=== PATIENT | male | born 1955 | race American Indian/Alaskan Native ===

== ENCOUNTER 2018-07-05 07:36 | Emergency (ER) | payer OTHER ==
[2018-07-05 09:12] LABS: Basophils % (Auto) 0.3 % (0.0-1.8); Eosinophils % (Auto) 0.1 % (0.0-4.3); Hemoglobin 14.8 gm/dl (11.8-15.2); Lymphocytes # (Auto) 1.6 K/mm3 (1.2-5.4); Lymphocytes % (Auto) 13.9 % (13.4-35.0); Mean Corpuscular HGB Conc 34 % (32-34); Mean Corpuscular Hemoglobin 31 pg (28-32); Mean Corpuscular Volume 91 fl (84-94); Monocytes # (Auto) 0.9 K/mm3 (0.0-0.8); Monocytes % (Auto) 7.3 % (0.0-7.3); Platelet Count 256 K/mm3 (140-440); Red Blood Count 4.82 M/mm3 (3.65-5.03); Red Cell Distribution Width 14.2 % (13.2-15.2)
[2018-07-05] MEDS ORDERED: TORADOL IV ONE (09:26)
[2018-07-05] MEDS ORDERED: BRETHINE SUB-Q ONE (09:26)
[2018-07-05] MEDS ORDERED: DILAUDID IV ONE (09:26)
[2018-07-05 09:28] LABS: Alanine Aminotransferase 19 units/L (7-56); Albumin 4.3 g/dL (3.9-5); BUN/Creatinine Ratio 20; Blood Urea Nitrogen 16 mg/dL (9-20); Calcium 9.3 mg/dL (8.4-10.2); Hemolysis Index 20; Lipase 46 units/L (13-60)
--- NOTE | 2018-07-05 09:28 | Emergency Department Report ---
Blank Doc - Documentation Documentation: Patient is a 62-year-old -Indian male who signed him because of dysuria and suprapubic pain however the patient actually states that he believes he may have overdosed on erectile dysfunction medications has been corrected for the past 9 hours. Patient states the pain is 8 out of 10 in severity. On brief physical exam patient is suprapubic discomfort but is fully erect. Patient will be moved to the main ED for continued management. Patient was given 1 mg of Dilaudid as well as terbutaline as Sudafed to try to relieve the patient's symptoms.
[2018-07-05] MEDS ORDERED: DILAUDID ONE (09:30)
[2018-07-05] MEDS ORDERED: TORADOL ONE (09:31)
[2018-07-05] MEDS ORDERED: SUDAFED PO ONE (10:00)
[2018-07-05] MEDS ORDERED: NEO-SYNEPHRINE 1 MG, NACL P/F VIAL (10 ML) 9.9 ML IJ**NOT IV ONE (10:25)
[2018-07-05] MEDS ORDERED: MARCAINE 0.25% INFILTRATI ONE (10:27)
[2018-07-05] MEDS ORDERED: BETADINE TP ONE (10:48)
--- NOTE | 2018-07-05 10:54 | Emergency Department Report ---
ED Male HPI - General Chief complaint: Abdominal Pain Stated complaint: STOMACH PAIN Time Seen by Provider: 07/05/18 09:19 Source: patient Mode of arrival: Ambulatory Limitations: No Limitations - History of Present Illness Initial comments: 62-year-old male with a past medical history of hypertension and erectile dysfunction presents to the hospital complaining of abdominal pain and priapism. Patient injected his penis with erectile dysfunction medication. Patient thinks he might have accidentally use more medication recommended. He has been erect since midnight and presented to the ER at 7:30 AM with complaint of lower abdominal pain and nausea for a couple of days and painful urination. After ED physician screening at 9:19am it was noted that patient had priapism. Patient states he did urinate at 5 AM. Pain related to priapism. States that he his having 10/10 penile pain and suprapubic abdominal pain started after priapism. Patient denies previous history of priapism. Patient states he does have a urologist who is [facility] - Related Data Home Medications Medication Instructions Recorded Confirmed Last Taken Lisinopril/Hydrochlorothiazide 1 tab PO QDAY 07/05/18 07/05/18 Unknown [Zestoretic 20-12.5 mg] Allergies Allergy/AdvReac Type Severity Reaction Status Date / Time No Known Allergies Allergy Unverified 07/05/18 08:24 ED Review of Systems ROS: Stated complaint: STOMACH PAIN Other details as noted in HPI Comment: All other systems reviewed and negative ED Past Medical Hx - Past Medical History Previous Medical History?: Yes Hx Hypertension: Yes Additional medical history: 3 spots on lung - Surgical History Past Surgical History?: No - Social History Smoking Status: Never Smoker Substance Use Type: None - Medications Home Medications: Home Medications Medication Instructions Recorded Confirmed Last Taken Type Lisinopril/Hydrochlorothiazide 1 tab PO QDAY 07/05/18 07/05/18 Unknown History [Zestoretic 20-12.5 mg] ED Physical Exam - General Limitations: No Limitations - Other Other exam information: General: No limitations, patient is alert in no acute distress Head exam: Atraumatic, normocephalic Eyes exam: Normal appearance ENT: Moist mucous membrane, normal oropharynx Neck exam: Normal inspection, full range of motion, no meningismus nontender Respiratory exam: Clear to auscultation bilateral, no wheezes, rales, crackles Cardiovascular: Normal rate and rhythm, normal heart sounds Abdomen: Soft, nondistended, suprapubic tenderness, with normal bowel sounds, no rebound, or guarding : Circumcised, priapism, no penile discharge, lesions, no testicular pain or scrotal swelling Extremity: Full range of motion normal inspection no deformity Back: Normal Inspection, full range of motion, no tenderness Neurologic: Alert, oriented x3, cranial nerves intact, no motor or sensory deficit Psychiatric: normal affect, normal mood Skin: Warm, dry, intact ED Course Vital Signs 07/05/18 07/05/18 07/05/18 08:24 11:13 11:16 Temperature 98.1 F Pulse Rate 86 103 H Respiratory 18 27 H Rate Blood Pressure 171/95 165/98 O2 Sat by Pulse 98 97 96 Oximetry 07/05/18 07/05/18 07/05/18 11:30 11:46 12:00 Temperature Pulse Rate 112 H 120 H 120 H Respiratory 17 17 15 Rate Blood Pressure 167/107 167/107 154/97 O2 Sat by Pulse 95 96 96 Oximetry 07/05/18 07/05/18 07/05/18 12:16 12:30 12:46 Temperature Pulse Rate 120 H 114 H 112 H Respiratory 17 21 20 Rate Blood Pressure 154/97 149/102 149/102 O2 Sat by Pulse 97 98 96 Oximetry 07/05/18 07/05/18 07/05/18 13:00 13:16 13:30 Temperature Pulse Rate 110 H 107 H 110 H Respiratory 19 13 14 Rate Blood Pressure 146/98 146/98 146/98 O2 Sat by Pulse 95 94 94 Oximetry 07/05/18 07/05/18 07/05/18 13:45 14:00 14:15 Temperature Pulse Rate 107 H 105 H 98 H Respiratory 13 16 18 Rate Blood Pressure 135/93 156/90 156/90 O2 Sat by Pulse 94 96 98 Oximetry 07/05/18 07/05/18 14:30 14:41 Temperature 97.9 F Pulse Rate 98 H Respiratory 16 Rate Blood Pressure 135/89 O2 Sat by Pulse 97 Oximetry - Penile Procedure Consent Obtained: verbal consent Time Out Performed: Yes Indication: priapism management Local Anesthesia Used: Penile Nerve Block Amount of Anesthesia Used (mls): 5 (pen VK) Priapism Management: aspiration, phenylephrine injection Complications: none Patient Tolerated Procedure: well Additional Comments: Nitin bandage wrap placed after initial aspiration. Patient observed for 1-2 hours after aspiration and has complete resolution of priapism without hematoma formation after Nitin wrap removal. ED Medical Decision Making - Lab Data Result diagrams: 07/05/18 08:37 07/05/18 08:37 Lab Results 07/05/18 07/05/18 Range/Units 08:37 08:37 WBC 11.8 H (4.5-11.0) K/mm3 RBC 4.82 (3.65-5.03) M/mm3 Hgb 14.8 (11.8-15.2) gm/dl Hct 44.0 (35.5-45.6) % MCV 91 (84-94) fl MCH 31 (28-32) pg MCHC 34 (32-34) % RDW 14.2 (13.2-15.2) % Plt Count 256 (140-440) K/mm3 Lymph % (Auto) 13.9 (13.4-35.0) % [place] % (Auto) 7.3 (0.0-7.3) % Eos % (Auto) 0.1 (0.0-4.3) % Baso % (Auto) 0.3 (0.0-1.8) % Lymph # 1.6 (1.2-5.4) K/mm3 [place] # 0.9 H (0.0-0.8) K/mm3 Eos # 0.0 (0.0-0.4) K/mm3 Baso # 0.0 (0.0-0.1) K/mm3 Seg Neutrophils % 78.4 H (40.0-70.0) % Seg Neutrophils # 9.3 H (1.8-7.7) K/mm3 Sodium 142 (137-145) mmol/L Potassium 4.0 (3.6-5.0) mmol/L Chloride 105.6 (98-107) mmol/L Carbon Dioxide 26 (22-30) mmol/L Anion Gap 14 mmol/L BUN 16 (9-20) mg/dL Creatinine 0.8 (0.8-1.5) mg/dL Estimated GFR > 60 ml/min BUN/Creatinine Ratio 20 % Glucose 108 H (75-100) mg/dL Calcium 9.3 (8.4-10.2) mg/dL Total Bilirubin 0.40 (0.1-1.2) mg/dL AST 19 (5-40) units/L ALT 19 (7-56) units/L Alkaline Phosphatase 70 (35-129) units/L Total Protein 7.5 (6.3-8.2) g/dL Albumin 4.3 (3.9-5) g/dL Albumin/Globulin Ratio 1.3 % Lipase 46 (13-60) units/L - Medical Decision Making Patient received Sudafed and 3 separate IM injection of terbutaline without improvement and priapism. Patient then had peanut aspiration performed after penile block followed by phenylephrine infusion. Complete resolution of priapism an erection prior to discharge. Patient has a persistent tachycardia likely secondary to the above-mentioned meds. He is asymptomatic and feels better. - Differential Diagnosis priapism, infection Critical Care Time: No Critical care attestation.: If time is entered above; I have spent that time in minutes in the direct care of this critically ill patient, excluding procedure time. ED Disposition Clinical Impression: Priapism, Drug-induced priapism Disposition: DC-01 TO HOME OR SELFCARE Is pt being admited?: No Does the pt Need Aspirin: No Instructions: Priapism (ED) Additional Instructions: Follow-up with your urologist or the urologist provided prior to reinitiating erectile dysfunction medication. Return if symptoms worsen as indicated by the discharge instructions. Referrals: your, urologist [Other] - 3-5 Days DASIA BERRIOS MD [Staff Physician] - 3-5 Days Time of Disposition: 14:47
[2018-07-05] MEDS: BRETHINE SUB-Q SCH ×2 (11:18→11:40)
[2018-07-05 14:41] VITALS: BP 135/89
== END 2018-07-05 15:35 | disposition home or self-care (01) ==
LOC: EDSEX → ED 07:36
DX: N48.33 Priapism, drug-induced (principal); T50.905A Adverse effect of unspecified drugs, medicaments and biological substances, initial encounter; I10 Essential (primary) hypertension; Y92.009 Unspecified place in unspecified non-institutional (private) residence as the place of occurrence of the external cause
CPT/HCPCS: 36415; 54220; 80053; 83690; 85025; 96372; 96374; 96375; 99283; J1170; J1885; J3105

== ENCOUNTER 2019-06-02 13:36 | Emergency (ER) | payer OTHER ==
--- NOTE | 2019-06-02 13:48 | Event Note ---
ED Screening Note Date of service: 06/02/19 Time: 13:45 ED Screening Note: 63 y o male presenst with productive cough and congestion and headache recent diagnosis of strep taking medication This initial assessment/diagnostic orders/clinical plan/treatment(s) is/are subject to change based on patients health status, clinical progression and re- assessment by fellow clinical providers in the ED. Further treatment and workup at subsequent clinical providers discretion. Patient/guardian urged not to elope from the ED as their condition may be serious if not clinically assessed and managed. Initial orders include: CXR
--- NOTE | 2019-06-02 14:13 | XRay Report ---
CHEST 2 VIEWS INDICATION / CLINICAL INFORMATION: Productive cough. COMPARISON: None available. FINDINGS: SUPPORT DEVICES: None. HEART / MEDIASTINUM: No significant abnormality. LUNGS / PLEURA: No significant pulmonary or pleural abnormality. No pneumothorax. ADDITIONAL FINDINGS: No significant additional findings. IMPRESSION: No acute abnormality of the chest. Signer Name: Eliu Ortez MD Signed: 06/02/2019 2:08 PM Workstation Name: [id number]
--- NOTE | 2019-06-02 15:20 | Emergency Department Report ---
<ELEANOR ALVARADO P - Last Filed: 06/02/19 17:19> ED General Adult HPI - General Chief complaint: Upper Respiratory Infection Stated complaint: HEADACHE Time Seen by Provider: 06/02/19 13:45 Source: patient Mode of arrival: Ambulatory Limitations: No Limitations - History of Present Illness Initial comments: Patient reports that for the past 30 days he has awaken with a headache every morning. Reports that he was recently diagnosed with strep throat and is currently taking prescription antibiotic Augmentin. Reports that he has cough, and nasal drainage. Reports he is worried the drainage went into his chest and that he has had chest discomfort for approximately 3 days. Reports no PCP. Reports that he ran out of his anti-hypertensives approximately 3 days ago. Denies talking to PCP about his headache. Denies trauma. Denies drugs/alcohol -: Gradual, days(s) (3) Location: head (reports headache for approximately 30 days), chest Radiation: non-radiation Severity scale (0 -10): 1 Quality: aching Consistency: intermittent Improves with: none Worsens with: none Associated Symptoms: chest pain, cough, headaches. denies: confusion, diaphoresis, fever/chills, loss of appetite, malaise, nausea/vomiting, rash, seizure, shortness of breath, syncope, weakness - Related Data Previous Rx's Medication Instructions Recorded Last Taken Type Lisinopril/Hydrochlorothiazide 1 tab PO QDAY #30 tablet 06/02/19 Unknown Rx [Zestoretic 20-12.5 mg] Allergies Allergy/AdvReac Type Severity Reaction Status Date / Time No Known Allergies Allergy Unverified 07/05/18 08:24 ED Review of Systems Other: GENERAL: No weight change, fatigue, fever, chills, or night sweats SKIN: No changes in skin or hair, no itching, no rashes, no jaundice HEAD: No trauma, headache, or visual changes EYES: No blurriness, tearing, itching, acute visual loss, conjunctival discoloration, or scleral icterus EARS: No hearing loss, tinnitus, vertigo, or earache NOSE: rhinorrhea, stuffiness. No sneezing, itching, or epistaxis MOUTH: No bleeding gums, hoarseness, sore throat, or swelling CARDIAC: Chest Pain. No new murmur, palpitations, dyspnea on exertion, orthopnea, PND, or edema RESPIRATORY: Cough. No shortness of breath, wheeze, sputum production, hemoptysis, pneumonia, asthma, bronchitis, or emphysema GI: No change in appetite, nausea, vomiting, dysphagia, diarrhea, constipation, hematemesis, melena, hematochezia, or abdominal pain URINARY: No frequency, urgency, polyuria, dysuria, hematuria, or incontinence MUSCULOSKELETAL: No muscle weakness, joint stiffness, decrease in range of motion, redness, swelling NEUROLOGIC: headache. No loss of sensation, numbness, tingling, tremors, weakness, paralysis, seizures HEMATOLOGIC: No anemia, easy bruising, bleeding, petechiae, or purpura ENDOCRINE: No hot or cold intolerance, sweating, polyuria, polydipsia or, polyphagia no thyroid problems PSYCHIATRIC: No change in mood, no anxiety, no depression ED Past Medical Hx - Past Medical History Previous Medical History?: Yes Hx Hypertension: Yes Additional medical history: 3 spots on lung - Surgical History Past Surgical History?: No - Social History Smoking Status: Never Smoker Substance Use Type: None - Medications Home Medications: Home Medications Medication Instructions Recorded Confirmed Last Taken Type Lisinopril/Hydrochlorothiazide 1 tab PO QDAY #30 tablet 06/02/19 Unknown Rx [Zestoretic 20-12.5 mg] ED Physical Exam - General Limitations: No Limitations - Other Other exam information: GENERAL: Patient in no acute distress HEAD: Normocephalic, atraumatic EYES: PERRLA, EOM intact, no scleral icterus, no conjunctival hemorrhage, visual strong and acuity wnl NOSE: No tenderness, discharge, sinus tenderness MOUTH: No erythema, bleeding, exudate HEART: Regular rate and rhythm, no murmur, S1-S2 are auscultated, pulses are symmetric LUNGS: No respiratory distress. Bilateral breath sounds, No tachypnea, No retractions, No wheezing, rales, rhonchi ABDOMEN: Normal bowel sounds, abdomen soft, no tenderness, no rebound, no guarding, no distention, no masses, no CVA tenderness MUSCULOSKELETAL: Normal joint range of motion, no redness, no swelling, no tenderness NEUROLOGIC: GCS 15, Alert and Oriented x3, Cranial nerves intact, normal sensation, normal strength, normal gait, no cerebellar deficit, NIHSS 0 PSYCHIATRIC: No homicidal or suicidal ideation, no anxiety, no depression, no hallucinations SKIN: Skin is warm and dry, no wounds, no rashes ED Medical Decision Making - Lab Data Result diagrams: 06/02/19 17:02 Laboratory Results - last 24 hr 06/02/19 17:02 WBC 9.3 RBC 5.03 Hgb 15.9 H Hct 45.2 MCV 90 MCH 32 MCHC 35 H RDW 14.0 Plt Count 268 Lymph % (Auto) 26.7 [place] % (Auto) 9.8 H Eos % (Auto) 1.4 Baso % (Auto) 0.4 Lymph # 2.5 [place] # 0.9 H Eos # 0.1 Baso # 0.0 Seg Neutrophils % 61.7 Seg Neutrophils # 5.7 - EKG Data Interpretation: no acute changes - Radiology Data Radiology results: report reviewed - Medical Decision Making Patient comfortable. Doron CABEZAS agrees to follow up lab results. Plan if normal patient can be discharged with outpatient follow up. ED Disposition Clinical Impression: Essential hypertension, Medication refill Chest pain Qualifiers: Chest pain type: unspecified Qualified Code(s): R07.9 - Chest pain, unspecified Headache Qualifiers: Headache type: unspecified Headache chronicity pattern: unspecified pattern Intractability: not intractable Qualified Code(s): R51 - Headache Disposition: DC-01 TO HOME OR SELFCARE Condition: Stable Instructions: Chest Pain (ED), Hypertension (ED) Additional Instructions: F/U in Primary Care in 2-3 days. Mornitor BP, take medication as prescribed. Use Tylenol PRN. Continue increase water intake and rest. Reurn to ED if symptoms worsen. Prescriptions: Lisinopril/Hydrochlorothiazide [Zestoretic 20-12.5 mg] 1 tab PO QDAY #30 tablet Referrals: PRIMARY CARE, [Primary Care Provider] - 3-5 Days <DORON SCOTT - Last Filed: 06/03/19 04:36> ED Review of Systems ROS: Stated complaint: HEADACHE Other details as noted in HPI ED Course Vital Signs 06/02/19 06/02/19 13:45 18:12 Temperature 98.1 F 98.2 F Pulse Rate 98 H 81 Respiratory 18 17 Rate Blood Pressure 148/101 150/102 O2 Sat by Pulse 98 96 Oximetry ED Medical Decision Making - Lab Data Result diagrams: 06/02/19 17:02 06/02/19 17:02 Critical care attestation.: If time is entered above; I have spent that time in minutes in the direct care of this critically ill patient, excluding procedure time. ED Disposition Is pt being admited?: No Does the pt Need Aspirin: No
--- NOTE | 2019-06-02 16:33 | Cat Scan Report ---
NONENHANCED CT SCAN OF THE BRAIN: INDICATION: Headaches for 3 weeks TECHNIQUE: Routine CT head without contrast. Sagittal and coronal reformatted images were obtained. A ll CT scans at this location are performed using CT dose reduction for ALARA by means of automated ex posure control. COMPARISON: None. FINDINGS: BRAIN / INTRACRANIAL CONTENTS: No acute hemorrhage, mass effect, midline shift, hydrocephalus, or acu te, large territorial infarct. Periventricular low density areas are seen in both cerebral hemisphere s. In addition, low density white matter lesions are seen bilaterally. These are due to microvascular faint angiopathy. CRANIOCERVICAL JUNCTION: No significant abnormality. ORBITS: No significant abnormality of visualized orbits. SINUSES / MASTOIDS: Mucosal thickening is seen in both maxillary sinuses. It is more on the right aki e. Inferior alveolar ridge on the right side is sclerotic. Root abscesses seen ADDITIONAL FINDINGS: None. IMPRESSION: I do not see an acute parenchymal lesion in the brain. Signer Name: Narinder Neff MD Signed: 06/02/2019 4:29 PM Workstation Name: [id number]
[2019-06-02 17:15] LABS: Basophils % (Auto) 0.4 % (0.0-1.8); Eosinophils # (Auto) 0.1 K/mm3 (0.0-0.4); Eosinophils % (Auto) 1.4 % (0.0-4.3); Hematocrit 45.2 % (35.5-45.6); Hemoglobin 15.9 gm/dl (11.8-15.2); Lymphocytes # (Auto) 2.5 K/mm3 (1.2-5.4); Lymphocytes % (Auto) 26.7 % (13.4-35.0); Mean Corpuscular HGB Conc 35 % (32-34); Mean Corpuscular Volume 90 fl (84-94); Monocytes # (Auto) 0.9 K/mm3 (0.0-0.8); Monocytes % (Auto) 9.8 % (0.0-7.3); Platelet Count 268 K/mm3 (140-440); Red Blood Count 5.03 M/mm3 (3.65-5.03)
[2019-06-02 17:37] LABS: BUN/Creatinine Ratio 16; Blood Urea Nitrogen 11 mg/dL (9-20); Calcium 9.6 mg/dL (8.4-10.2); Hemolysis Index 31
[2019-06-02 18:13] VITALS: BP 150/102
== END 2019-06-02 19:02 | disposition home or self-care (01) ==
LOC: ED 13:36
DX: R51 Headache (principal); R07.89 Other chest pain; R05 Cough; R09.81 Nasal congestion; I10 Essential (primary) hypertension; Z76.0 Encounter for issue of repeat prescription; Z98.890 Other specified postprocedural states
CPT/HCPCS: 36415; 70450; 71046; 80048; 84484; 85025; 93005; 93010